=== PATIENT | male | born 2000 | race Caucasian/White ===

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

== ENCOUNTER 2019-01-21 19:34 | Inpatient (IN) | payer MEDICAID, OTHER ==
[~2019-01-21] VITALS: Ht 175.3 cm; Wt 85.3 kg
[~2019-01-21 19:34] MED LIST: ESCI20TA36 PO; ZIPR40CA2 PO
[2019-01-21 20:13] LABS: BASOPHILS % (AUTO) 0.5 % (0.0-2.0); EOSINOPHILS % (AUTO) 1.6 % (1.0-6.0); HEMATOCRIT 43.4 % (41-53); HEMOGLOBIN 14.7 g/dL (13.5-17.5); LYMPHOCYTES # (AUTO) 2.7 K/uL (1.0-4.8); LYMPHOCYTES % (AUTO) 21.9 % (22.0-44.0); MEAN CORPUSCULAR HGB CONC 33.9 G/dL (31.0-37.0); MEAN CORPUSCULAR VOLUME 86 fL (80-100); MONOCYTES # (AUTO) 0.7 K/uL (0.1-1.0); MONOCYTES % (AUTO) 5.9 % (2.0-9.0); NEUTROPHILS # (AUTO) 8.7 K/uL (1.8-7.7); NEUTROPHILS % (AUTO) 70.1 % (40.0-70.0); PLATELET COUNT (AUTO) 248 K/uL (150-450); RED BLOOD CELL COUNT(AUTO) 5.06 MIL/uL (4.50-5.90); RED CELL DISTRIBUTION WIDTH 13.4 % (11.5-14.5)
[2019-01-21] MEDS ORDERED: HALOPERIDOL 5 MG TABLET PO PRN (20:15)
[2019-01-21] MEDS ORDERED: LORazepam 1 MG TABLET PO PRN (20:15)
[2019-01-21] MEDS ORDERED: ZOLPIDEM TARTRATE 10 MG TABLET PO PRN (20:15)
[2019-01-21 20:25] LABS: ANION GAP 8 mmol/L (8-16); CALCIUM, TOTAL 8.9 mg/dL (8.8-10.5); CARBON DIOXIDE 24 mmol/L (22-29); CHLORIDE 105 mmol/L (98-107); CREATININE 0.95 mg/dL (0.60-1.30); GLOMERULAR FILTR. RATE CALC > 60 mL/min (>60); GLUCOSE,RANDOM 108 mg/dL (70-110); SODIUM SERUM 137 mmol/L (136-145); UREA NITROGEN, BLOOD 16 mg/dL (7-18)
[2019-01-21 20:32] LABS: ALANINE AMINOTRANSFERASE 45 U/L (12-78); ALBUMIN 4.1 g/dL (3.4-5.0); ALKALINE PHOSPHATASE 75 U/L (46-116); ASPARTATE AMINOTRANSFERASE 19 U/L (15-37); BILIRUBIN,TOTAL 0.2 mg/dL (0.1-1.0); TOTAL PROTEIN, SERUM 7.7 g/dL (6.4-8.2)
[2019-01-21] MEDS ORDERED: ZIPR40CA2 PO ×2 (21:00)
[2019-01-21] MEDS ORDERED: ESCI20TA PO (21:00)
[2019-01-21] MEDS ORDERED: TOPI25 PO ×2 (21:00)
[2019-01-21] MEDS ORDERED: IBUPROFEN 800 MG TABLET PO ONE (21:15)
[2019-01-21 21:57] LABS: AMPHET/METH SCREEN,URINE NEGATIVE (NEGATIVE); BARBITURATE SCREEN, URINE NEGATIVE (NEGATIVE); BENZODIAZEPINES SCREEN,URINE NEGATIVE (NEGATIVE); CANNABINOID SCREEN,URINE NEGATIVE (NEGATIVE); COCAINE SCREEN,URINE NEGATIVE (NEGATIVE); METHADONE SCREEN, URINE NEGATIVE (NEGATIVE); OPIATE SCREEN,URINE NEGATIVE (NEGATIVE)
[2019-01-21 21:58] LABS: PHENCYCLIDINE SCREEN,URINE NEGATIVE (NEGATIVE)
[2019-01-22 00:28] VITALS: BP 158/92
[2019-01-22 07:50] LABS: BILIRUBIN,URINE NEGATIVE (NEGATIVE); GLUCOSE, URINE (UA) NEGATIVE (NEGATIVE); KETONES,URINE NEGATIVE (NEGATIVE); LEUKOCYTE ESTERASE ,URINE NEGATIVE (NEGATIVE); NITRATE,URINE NEGATIVE (NEGATIVE); OCCULT BLOOD,URINE NEGATIVE (NEGATIVE); PH,URINE 6.5 (5.0-8.0); PROTEIN,URINE TRACE (NEGATIVE); UROBILINOGEN,URINE 0.2 mg/dL (<=1.0)
[2019-01-22 08:09] LABS: APPEARANCE,URINE CLEAR (CLEAR)
[2019-01-22 08:39] VITALS: BP 144/78
[2019-01-22] MEDS ORDERED: ZIPRASIDONE HCL 40 MG CAPSULE PO SCH (10:45)
[2019-01-22] MEDS: TOPIRAMATE 25 MG TABLET PO SCH ×2 (11:29→16:31)
[2019-01-22] MEDS ORDERED: MAG HYDROX/AL HYDROX/SIMETH ES 30 ML SUSPENSION UDCUP PO PRN (11:30)
[2019-01-22] MEDS ORDERED: MAGNESIUM HYDROXIDE SUSPENSION 30 ML UDCUP PO PRN (11:30)
[2019-01-22] MEDS ORDERED: BENZOCAINE/MENTHOL LOZENGE MM PRN (11:30)
[2019-01-22] MEDS ORDERED: BACITRACIN 28.4 GM OINTMENT TP PRN (11:30)
[2019-01-22] MEDS ORDERED: LOPERAMIDE HCL 2 MG CAPSULE PO PRN (11:30)
[2019-01-22] MEDS ORDERED: ACETAMINOPHEN 325 MG TABLET PO PRN (11:30)
[2019-01-22] MEDS ORDERED: ALBUTEROL SULFATE HFA 90 MCG/PUFF 8 GM INHALER IH PRN (11:30)
[2019-01-22] MEDS ORDERED: ONDANSETRON HCL 4 MG TABLET PO PRN (11:30)
[2019-01-22] MEDS ORDERED: IBUPROFEN 600 MG TABLET PO PRN (11:30)
[2019-01-22] MEDS ORDERED: PETROLATUM,WHITE 71 GM JELLY TP PRN (11:30)
[2019-01-22] MEDS ORDERED: CloNIDine HCL 0.1 MG TABLET PO PRN (11:30)
[2019-01-22] MEDS: ESCITALOPRAM OXALATE 20 MG TABLET PO SCH (11:31)
[2019-01-22 16:25] VITALS: BP 138/77
[2019-01-22] MEDS: ZIPRASIDONE HCL 60 MG CAPSULE PO SCH (16:25)
[2019-01-23 06:56] LABS: BASOPHILS % (AUTO) 0.5 % (0.0-2.0); EOSINOPHILS % (AUTO) 1.5 % (1.0-6.0); HEMATOCRIT 44.4 % (41-53); HEMOGLOBIN 15.3 g/dL (13.5-17.5); LYMPHOCYTES # (AUTO) 2.6 K/uL (1.0-4.8); LYMPHOCYTES % (AUTO) 26.6 % (22.0-44.0); MEAN CORPUSCULAR HEMOGLOBIN 29.6 pg (26.0-34.0); MEAN CORPUSCULAR HGB CONC 34.6 G/dL (31.0-37.0); MEAN CORPUSCULAR VOLUME 86 fL (80-100); MONOCYTES % (AUTO) 10.6 % (2.0-9.0); NEUTROPHILS # (AUTO) 5.9 K/uL (1.8-7.7); NEUTROPHILS % (AUTO) 60.8 % (40.0-70.0); PLATELET COUNT (AUTO) 231 K/uL (150-450); RED BLOOD CELL COUNT(AUTO) 5.18 MIL/uL (4.50-5.90); RED CELL DISTRIBUTION WIDTH 13.5 % (11.5-14.5)
[2019-01-23 08:24] VITALS: BP 122/79
[2019-01-23] MEDS: ZIPRASIDONE HCL 60 MG CAPSULE PO SCH ×2 (08:59→16:35)
[2019-01-23] MEDS: TOPIRAMATE 25 MG TABLET PO SCH ×2 (08:59→16:35)
[2019-01-23] MEDS: ESCITALOPRAM OXALATE 20 MG TABLET PO SCH (08:59)
[2019-01-23 21:25] VITALS: BP 127/82
[2019-01-24] MEDS: ZIPRASIDONE HCL 60 MG CAPSULE PO SCH ×2 (07:18→16:32)
[2019-01-24 08:00] VITALS: BP 125/80
[2019-01-24] MEDS: ESCITALOPRAM OXALATE 20 MG TABLET PO SCH (08:53)
[2019-01-24] MEDS: TOPIRAMATE 25 MG TABLET PO SCH ×2 (08:54→16:32)
[2019-01-24 23:02] VITALS: BP 121/87
[2019-01-25] MEDS: ZIPRASIDONE HCL 60 MG CAPSULE PO SCH ×2 (07:01→17:03)
[2019-01-25] MEDS: ESCITALOPRAM OXALATE 20 MG TABLET PO SCH (08:13)
[2019-01-25] MEDS: TOPIRAMATE 25 MG TABLET PO SCH ×2 (08:13→17:03)
[2019-01-25 08:53] VITALS: BP 106/68
[2019-01-25 16:00] VITALS: BP 133/77
[2019-01-26] MEDS: ZIPRASIDONE HCL 60 MG CAPSULE PO SCH ×2 (07:03→17:55)
[2019-01-26 08:45] VITALS: BP 117/63
[2019-01-26] MEDS: ESCITALOPRAM OXALATE 20 MG TABLET PO SCH (09:29)
[2019-01-26] MEDS: TOPIRAMATE 25 MG TABLET PO SCH ×2 (09:30→16:19)
[2019-01-26 20:04] VITALS: BP 126/78
[2019-01-27] MEDS: ZIPRASIDONE HCL 60 MG CAPSULE PO SCH (06:55)
[2019-01-27] MEDS: ESCITALOPRAM OXALATE 20 MG TABLET PO SCH (08:32)
[2019-01-27] MEDS: TOPIRAMATE 25 MG TABLET PO SCH (08:32)
[2019-01-27 09:28] VITALS: BP 126/85
[2019-01-27] MEDS ORDERED: ZIPR60CA2 PO (13:40)
== END 2019-01-27 14:30 | disposition home or self-care (01) | DRG 753 ==
LOC: EMS 19:35 → 3EC 21:30
PROVIDERS: ADMIT Psychiatry & Neurology Psychiatry; ATTEND Psychiatry & Neurology Psychiatry
DX: F31.4 Bipolar disorder, current episode depressed, severe, without psychotic features (principal); D72.829 Elevated white blood cell count, unspecified; F41.9 Anxiety disorder, unspecified; F84.0 Autistic disorder; G47.00 Insomnia, unspecified; S05.12XA Contusion of eyeball and orbital tissues, left eye, initial encounter; E78.5 Hyperlipidemia, unspecified; Z56.0 Unemployment, unspecified; X58.XXXA Exposure to other specified factors, initial encounter; Y93.89 Activity, other specified; Y92.89 Other specified places as the place of occurrence of the external cause; Y99.8 Other external cause status
CPT/HCPCS: G0480

== ENCOUNTER 2019-07-10 19:11 | Emergency (ER) | payer MEDICAID, OTHER ==
[~2019-07-10] VITALS: Ht 175.3 cm; Wt 77.3 kg
[~2019-07-10 19:11] MED LIST changes: +ESCI20TA PO; -ESCI20TA36 PO; +TOPI25 PO; -ZIPR40CA2 PO; +ZIPR60CA2 PO
[2019-07-10 20:24] LABS: ANION GAP 11 mmol/L (8-16); CALCIUM, TOTAL 9.6 mg/dL (8.8-10.5); CARBON DIOXIDE 23 mmol/L (22-29); CHLORIDE 105 mmol/L (98-107); CREATININE 1.29 mg/dL (0.60-1.30); GLOMERULAR FILTR. RATE CALC > 60 mL/min (>60); GLUCOSE,RANDOM 134 mg/dL (70-110); POTASSIUM 3.3 mmol/L (3.5-5.1); SODIUM SERUM 139 mmol/L (136-145); UREA NITROGEN, BLOOD 15 mg/dL (7-18)
[2019-07-10 20:26] LABS: BASOPHILS % (AUTO) 0.4 % (0.0-2.0); EOSINOPHILS % (AUTO) 0.8 % (1.0-6.0); HEMATOCRIT 45.6 % (41-53); HEMOGLOBIN 15.2 g/dL (13.5-17.5); LYMPHOCYTES # (AUTO) 2.6 K/uL (1.0-4.8); LYMPHOCYTES % (AUTO) 23.6 % (22.0-44.0); MEAN CORPUSCULAR HEMOGLOBIN 29.3 pg (26.0-34.0); MEAN CORPUSCULAR HGB CONC 33.2 G/dL (31.0-37.0); MEAN CORPUSCULAR VOLUME 88 fL (80-100); MONOCYTES # (AUTO) 0.9 K/uL (0.1-1.0); MONOCYTES % (AUTO) 7.9 % (2.0-9.0); NEUTROPHILS # (AUTO) 7.5 K/uL (1.8-7.7); NEUTROPHILS % (AUTO) 67.3 % (40.0-70.0); PLATELET COUNT (AUTO) 245 K/uL (150-450); RED BLOOD CELL COUNT(AUTO) 5.18 MIL/uL (4.50-5.90); RED CELL DISTRIBUTION WIDTH 13.8 % (11.5-14.5)
[2019-07-10 20:30] LABS: ALANINE AMINOTRANSFERASE 42 U/L (12-78); ALBUMIN 4.5 g/dL (3.4-5.0); ALKALINE PHOSPHATASE 71 U/L (46-116); ASPARTATE AMINOTRANSFERASE 19 U/L (15-37); BILIRUBIN,TOTAL 0.4 mg/dL (0.1-1.0); TOTAL PROTEIN, SERUM 7.9 g/dL (6.4-8.2)
[2019-07-10 21:02] VITALS: BP 122/70
[2019-07-10] MEDS ORDERED: DiphenhydrAMINE HCL 25 MG CAPSULE PO ONE (21:15)
== END 2019-07-10 21:10 | disposition home or self-care (01) ==
LOC: EMS 19:12
DX: F84.0 Autistic disorder (principal); R45.4 Irritability and anger; F31.9 Bipolar disorder, unspecified; Z79.899 Other long term (current) drug therapy
CPT/HCPCS: 36415; 70450; 80053; 82948; 85025; 93005; 99285; G0480

== ENCOUNTER 2019-07-18 11:50 | Emergency (ER) | payer OTHER ==
[~2019-07-18] VITALS: Ht 175.3 cm; Wt 77.3 kg
[2019-07-18 14:26] VITALS: BP 135/71
== END 2019-07-18 14:29 | disposition home or self-care (01) ==
LOC: EMS 11:51
DX: S43.101A Unspecified dislocation of right acromioclavicular joint, initial encounter (principal); F31.9 Bipolar disorder, unspecified; W01.0XXA Fall on same level from slipping, tripping and stumbling without subsequent striking against object, initial encounter; Y93.89 Activity, other specified; Y92.89 Other specified places as the place of occurrence of the external cause; Y99.8 Other external cause status
CPT/HCPCS: 23650

== ENCOUNTER 2019-08-29 19:31 | Inpatient (IN) | payer MEDICAID, OTHER ==
[~2019-08-29] VITALS: Ht 175.3 cm; Wt 87.3 kg
[2019-08-29] MEDS ORDERED: LORazepam 2 MG TABLET PO PRN (20:00)
[2019-08-29] MEDS ORDERED: HALOPERIDOL 5 MG TABLET PO PRN (20:00)
[2019-08-29] MEDS ORDERED: ZOLPIDEM TARTRATE 10 MG TABLET PO PRN (20:00)
[2019-08-29] MEDS ORDERED: INFLUENZA VIRUS VACCINE QVS 2019-20 (3YR+)/PF 60 MCG/0.5 ML SYRINGE IM ONE (20:30)
[2019-08-29 22:02] VITALS: BP 116/53
[2019-08-30 04:00] VITALS: BP 118/79
[2019-08-30 07:59] LABS: BASOPHILS % (AUTO) 0.3 % (0.0-2.0); EOSINOPHILS % (AUTO) 0.4 % (1.0-6.0); HEMOGLOBIN 15.4 g/dL (13.5-17.5); LYMPHOCYTES # (AUTO) 1.8 K/uL (1.0-4.8); LYMPHOCYTES % (AUTO) 20.6 % (22.0-44.0); MEAN CORPUSCULAR HEMOGLOBIN 29.2 pg (26.0-34.0); MEAN CORPUSCULAR HGB CONC 33.5 G/dL (31.0-37.0); MEAN CORPUSCULAR VOLUME 87 fL (80-100); MONOCYTES # (AUTO) 0.6 K/uL (0.1-1.0); MONOCYTES % (AUTO) 6.7 % (2.0-9.0); NEUTROPHILS # (AUTO) 6.4 K/uL (1.8-7.7); PLATELET COUNT (AUTO) 260 K/uL (150-450); RED BLOOD CELL COUNT(AUTO) 5.28 MIL/uL (4.50-5.90); RED CELL DISTRIBUTION WIDTH 13.5 % (11.5-14.5)
[2019-08-30 08:19] LABS: HEMOGLOBIN A1C 5.9 % (4.5-6.2)
[2019-08-30 08:24] VITALS: BP 120/81
[2019-08-30 08:37] LABS: ALANINE AMINOTRANSFERASE 60 U/L (12-78); ALKALINE PHOSPHATASE 74 U/L (46-116); ANION GAP 8 mmol/L (8-16); ASPARTATE AMINOTRANSFERASE 21 U/L (15-37); BILIRUBIN,TOTAL 0.4 mg/dL (0.1-1.0); CALCIUM, TOTAL 9.3 mg/dL (8.8-10.5); CARBON DIOXIDE 27 mmol/L (22-29); CHLORIDE 106 mmol/L (98-107); CHOL/HDL RATIO 5.2 (4.2-7.3); CHOLESTEROL 215 mg/dL (131-200); CREATININE 0.73 mg/dL (0.60-1.30); FREE T4 (FREE THYROXINE) 0.82 ng/dL (0.76-1.46); GLOMERULAR FILTR. RATE CALC > 60 mL/min (>60); GLUCOSE,RANDOM 93 mg/dL (70-110); HDL CHOLESTEROL 41 mg/dL (40-60); LDL CHOL (CALC.) 154 mg/dL (0-130); POTASSIUM 3.8 mmol/L (3.5-5.1); SODIUM SERUM 141 mmol/L (136-145); THYROID STIMULATING HORMONE 2.19 uIU/mL (0.36-3.74); TOTAL PROTEIN, SERUM 7.9 g/dL (6.4-8.2); TRIGLYCERIDES 101 mg/dL (15-150); UREA NITROGEN, BLOOD 10 mg/dL (7-18)
[2019-08-30] MEDS: ESCITALOPRAM OXALATE 20 MG TABLET PO SCH (14:33)
[2019-08-30 16:00] VITALS: BP 129/82
[2019-08-30] MEDS: TOPIRAMATE 25 MG TABLET PO SCH (16:58)
[2019-08-30] MEDS: ZIPRASIDONE HCL 60 MG CAPSULE PO SCH (16:58)
[2019-08-31 00:29] VITALS: BP 138/72
[2019-08-31] MEDS: ZIPRASIDONE HCL 60 MG CAPSULE PO SCH ×2 (07:02→16:12)
[2019-08-31 08:18] VITALS: BP 117/79
[2019-08-31] MEDS: TOPIRAMATE 25 MG TABLET PO SCH ×2 (08:38→16:12)
[2019-08-31] MEDS: ESCITALOPRAM OXALATE 20 MG TABLET PO SCH (08:38)
[2019-08-31 16:09] VITALS: BP 107/65
[2019-09-01 00:44] VITALS: BP 114/80
[2019-09-01] MEDS: ZIPRASIDONE HCL 60 MG CAPSULE PO SCH ×2 (06:31→16:55)
[2019-09-01 08:11] VITALS: BP 108/66
[2019-09-01] MEDS: TOPIRAMATE 25 MG TABLET PO SCH ×2 (08:37→16:55)
[2019-09-01] MEDS: ESCITALOPRAM OXALATE 20 MG TABLET PO SCH (08:37)
[2019-09-01 16:35] VITALS: BP 118/81
[2019-09-02 06:26] VITALS: BP 115/71
[2019-09-02] MEDS: ZIPRASIDONE HCL 60 MG CAPSULE PO SCH ×2 (06:43→16:41)
[2019-09-02] MEDS: TOPIRAMATE 25 MG TABLET PO SCH ×2 (08:19→16:42)
[2019-09-02] MEDS: ESCITALOPRAM OXALATE 20 MG TABLET PO SCH (08:19)
[2019-09-02 08:27] VITALS: BP 118/62
[2019-09-02 16:11] VITALS: BP 117/63
[2019-09-02] MEDS ORDERED: PETROLATUM,WHITE 28 GM JELLY TP PRN (16:30)
[2019-09-02] MEDS ORDERED: IBUPROFEN 600 MG TABLET PO PRN (16:30)
[2019-09-02] MEDS ORDERED: ONDANSETRON HCL 4 MG TABLET PO PRN (16:30)
[2019-09-02] MEDS ORDERED: OMEPRAZOLE 20 MG CAPSULE PO PRN (16:30)
[2019-09-02] MEDS ORDERED: BACITRACIN 28.4 GM OINTMENT TP PRN (16:30)
[2019-09-02] MEDS ORDERED: ACETAMINOPHEN 325 MG TABLET PO PRN (16:30)
[2019-09-02] MEDS ORDERED: MAG HYDROX/AL HYDROX/SIMETH ES 30 ML SUSPENSION UDCUP PO PRN (16:30)
[2019-09-02] MEDS ORDERED: BENZOCAINE/MENTHOL LOZENGE MM PRN (16:30)
[2019-09-02] MEDS ORDERED: MAGNESIUM HYDROXIDE SUSPENSION 30 ML UDCUP PO PRN (16:30)
[2019-09-02] MEDS ORDERED: DOCUSATE SODIUM 100 MG CAPSULE PO PRN (16:30)
[2019-09-02] MEDS ORDERED: ALBUTEROL SULFATE HFA 90 MCG/PUFF 8 GM INHALER IH PRN (16:30)
[2019-09-02] MEDS ORDERED: CloNIDine HCL 0.1 MG TABLET PO PRN (16:30)
[2019-09-02] MEDS ORDERED: LOPERAMIDE HCL 2 MG CAPSULE PO PRN (16:30)
[2019-09-03 05:57] VITALS: BP 103/76
[2019-09-03] MEDS: ZIPRASIDONE HCL 60 MG CAPSULE PO SCH ×2 (06:49→17:00)
[2019-09-03] MEDS: OMEGA-3/DHA/EPA/FISH OIL 1,000 MG CAPSULE PO SCH (08:04)
[2019-09-03] MEDS: TOPIRAMATE 25 MG TABLET PO SCH ×2 (08:04→17:00)
[2019-09-03] MEDS: ESCITALOPRAM OXALATE 20 MG TABLET PO SCH (08:04)
[2019-09-03 08:48] VITALS: BP 113/65
[2019-09-03 16:21] VITALS: BP 112/62
[2019-09-04 00:25] VITALS: BP 118/61
[2019-09-04] MEDS: ZIPRASIDONE HCL 60 MG CAPSULE PO SCH (07:00)
[2019-09-04 08:14] VITALS: BP 117/69
[2019-09-04] MEDS: OMEGA-3/DHA/EPA/FISH OIL 1,000 MG CAPSULE PO SCH (08:27)
[2019-09-04] MEDS: TOPIRAMATE 25 MG TABLET PO SCH (08:27)
[2019-09-04] MEDS: ESCITALOPRAM OXALATE 20 MG TABLET PO SCH (08:27)
[2019-09-04] MEDS ORDERED: OMEG-135 PO (13:19)
== END 2019-09-04 14:15 | disposition home or self-care (01) | DRG 750 ==
LOC: B2S 19:55
DX: F20.0 Paranoid schizophrenia (principal); D72.829 Elevated white blood cell count, unspecified; F31.9 Bipolar disorder, unspecified; F84.0 Autistic disorder; S05.12XA Contusion of eyeball and orbital tissues, left eye, initial encounter; X58.XXXA Exposure to other specified factors, initial encounter; G47.00 Insomnia, unspecified; Z79.899 Other long term (current) drug therapy; Y93.89 Activity, other specified; Y92.89 Other specified places as the place of occurrence of the external cause; Y99.8 Other external cause status
CPT/HCPCS: 83036; 84439; 84443

== ENCOUNTER 2025-06-01 22:13 | Inpatient (IN) | payer MEDICAID, OTHER ==
[~2025-06-01] VITALS: Ht 175.3 cm; Wt 89.0 kg
[~2025-06-01 22:13] MED LIST changes: -ESCI20TA PO; +ESCI20TA87 PO; +OMEG-135 PO; +TOPI-257 PO; -TOPI25 PO; -ZIPR60CA2 PO; +ZIPR60CA29 PO
[2025-06-01 23:00] LABS: COVID AG,FIA SOURCE NASAL SWAB
[2025-06-01 23:04] LABS: PLATELET COUNT (AUTO) 224 K/uL (150-450); RED BLOOD CELL COUNT(AUTO) 4.75 MIL/uL (4.50-5.90); RED CELL DISTRIBUTION WIDTH 13.0 % (11.5-14.5); WHITE BLOOD COUNT (AUTO) 9.9 K/uL (4.5-11.0)
[2025-06-01 23:10] LABS: CALCIUM, TOTAL 8.5 mg/dL (8.8-10.5); CREATININE 0.70 mg/dL (0.60-1.30); GLOMERULAR FILTR. RATE CALC > 60 mL/min (>60); GLUCOSE,RANDOM 103 mg/dL (70-110); SODIUM SERUM 141 mmol/L (136-145); UREA NITROGEN, BLOOD 15 mg/dL (7-18)
[2025-06-01 23:23] LABS: SARS-COV2 (COVID) ANTIGEN,FIA Negative (Negative)
[2025-06-02 04:30] VITALS: O2SAT 99
[2025-06-02] MEDS ORDERED: DOCUSATE SODIUM 100 MG CAPSULE PO PRN (05:30)
[2025-06-02] MEDS ORDERED: LOPERAMIDE HCL 2 MG CAPSULE PO PRN (05:30)
[2025-06-02] MEDS ORDERED: MAG HYDROX/ALUMINUM HYD/SIMETH ES 30 ML SUSPENSION UDCUP PO PRN (05:30)
[2025-06-02] MEDS ORDERED: IBUPROFEN 600 MG TABLET PO PRN (05:30)
[2025-06-02] MEDS ORDERED: PETROLATUM,WHITE 28 GM JELLY TP PRN (05:30)
[2025-06-02] MEDS ORDERED: BENZOCAINE/MENTHOL [CEPACOL] LOZENGE PO PRN (05:30)
[2025-06-02] MEDS ORDERED: ALBUTEROL SULFATE HFA 90 MCG/PUFF 8 GM INHALER IH PRN (05:30)
[2025-06-02] MEDS ORDERED: ONDANSETRON 4 MG TABLET PO PRN (05:30)
[2025-06-02] MEDS ORDERED: MAGNESIUM HYDROXIDE SUSPENSION 30 ML UDCUP PO PRN (05:30)
[2025-06-02] MEDS ORDERED: BACITRACIN 28 GM OINTMENT TP PRN (05:30)
[2025-06-02] MEDS ORDERED: OMEPRAZOLE 20 MG CAPSULE PO PRN (05:30)
[2025-06-02] MEDS ORDERED: ACETAMINOPHEN 325 MG TABLET PO PRN (05:30)
[2025-06-02 06:19] VITALS: BP 119/98; PULSE 105; RESP 18; TEMP 97.9; O2SAT 100
[2025-06-02 08:31] VITALS: BP 132/80; PULSE 85; RESP 18; TEMP 98.1; O2SAT 99
[2025-06-02] MEDS: OMEGA-3/DHA/EPA/FISH OIL 1,000 MG CAPSULE PO SCH (09:22)
[2025-06-02 15:00] VITALS: BP 119/64; PULSE 84; RESP 17; TEMP 98.6; O2SAT 98
[2025-06-02 20:42] VITALS: BP 122/69; PULSE 100; RESP 16; TEMP 98.4; O2SAT 99
[2025-06-03 09:02] LABS: PLATELET COUNT (AUTO) 254 K/uL (150-450); RED BLOOD CELL COUNT(AUTO) 5.17 MIL/uL (4.50-5.90); RED CELL DISTRIBUTION WIDTH 12.8 % (11.5-14.5); WHITE BLOOD COUNT (AUTO) 7.6 K/uL (4.5-11.0)
[2025-06-03 09:13] VITALS: BP 119/63; PULSE 97; RESP 18; TEMP 97.4; O2SAT 98
[2025-06-03 09:30] LABS: ASPARTATE AMINOTRANSFERASE 13 U/L (15-37); CALCIUM, TOTAL 9.0 mg/dL (8.8-10.5); CHOL/HDL RATIO 4.8 (4.2-7.3); CREATININE 0.63 mg/dL (0.60-1.30); GLOMERULAR FILTR. RATE CALC > 60 mL/min (>60); GLUCOSE,RANDOM 83 mg/dL (70-110); LDL CHOL (CALC.) 145 mg/dL (0-130); SODIUM SERUM 144 mmol/L (136-145); TOTAL PROTEIN, SERUM 7.7 g/dL (6.4-8.2); UREA NITROGEN, BLOOD 11 mg/dL (7-18)
[2025-06-03 20:29] VITALS: BP 127/72; PULSE 85; RESP 18; TEMP 98.5; O2SAT 98
[2025-06-03] MEDS: ZOLPIDEM TARTRATE 10 MG TABLET PO PRN (21:43)
[2025-06-04 09:11] VITALS: BP 130/70; RESP 16; TEMP 98.6; O2SAT 99
[2025-06-04] MEDS: LITHIUM CARBONATE 300 MG CAPSULE PO SCH (18:02)
[2025-06-04] MEDS: DIVALPROEX SODIUM 500 MG DR TABLET PO SCH (18:02)
[2025-06-04 20:22] VITALS: BP 114/81; PULSE 101; RESP 18; TEMP 97.7; O2SAT 99
[2025-06-05 09:02] VITALS: BP 134/61; PULSE 107; RESP 16; TEMP 98.1; O2SAT 98
[2025-06-05 20:29] VITALS: BP 142/86; PULSE 110; RESP 17; TEMP 98.4; O2SAT 99
[2025-06-06] MEDS ORDERED: OMEGA-3/DHA/EPA/FISH OIL 1,000 MG CAPSULE PO SCH (09:00)
[2025-06-06 09:13] VITALS: BP 125/72; PULSE 100; RESP 18; TEMP 96.8; O2SAT 96
[2025-06-06 20:27] VITALS: BP 138/90; PULSE 101; RESP 18; TEMP 98.2; O2SAT 98
[2025-06-07 08:35] VITALS: BP 132/63; PULSE 109; RESP 17; TEMP 97.1; O2SAT 98
[2025-06-07 20:00] VITALS: BP 129/73; PULSE 100; RESP 16; TEMP 98.4; O2SAT 100
[2025-06-08 08:57] VITALS: BP 130/75; PULSE 100; RESP 18; TEMP 98; O2SAT 98
[2025-06-08 09:18] LABS: VALPROIC ACID 56 mcg/mL (50-100)
[2025-06-08 20:26] VITALS: BP 124/77; PULSE 89; RESP 18; TEMP 98.1; O2SAT 98
[2025-06-09] VITALS (10 sets, daily range): BP systolic 108–131; BP diastolic 66–89; PULSE 80–102; RESP 16–18; TEMP 97.7–98.4; O2SAT 97–99
[2025-06-09 08:41] LABS: APPEARANCE,URINE CLEAR (CLEAR); GLUCOSE, URINE (UA) NEGATIVE (NEGATIVE); LEUKOCYTE ESTERASE ,URINE NEGATIVE (NEGATIVE); NITRATE,URINE NEGATIVE (NEGATIVE); OCCULT BLOOD,URINE NEGATIVE (NEGATIVE); PH,URINE DRUG SCREEN 6.5 (5.0-8.0); SPECIFIC GRAVITIY, URINE 1.014 (1.003-1.030)
[2025-06-09 08:45] LABS: ALCOHOL, URINE DRUG SCREEN NEGATIVE (NEGATIVE); AMPHET/METH SCREEN,URINE NEGATIVE (NEGATIVE); BARBITURATE SCREEN, URINE NEGATIVE (NEGATIVE); CANNABINOID SCREEN,URINE NEGATIVE (NEGATIVE); COCAINE SCREEN,URINE NEGATIVE (NEGATIVE); METHADONE SCREEN, URINE NEGATIVE (NEGATIVE)
[2025-06-09] MEDS: TOPIRAMATE 100 MG TABLET PO SCH (18:45)
[2025-06-09] MEDS: PRAZOSIN HCL 2 MG CAPSULE PO SCH (21:39)
[2025-06-10 09:10] VITALS: BP 109/64; PULSE 97; RESP 18; TEMP 98.4; O2SAT 96
[2025-06-10 20:21] VITALS: BP 114/68; PULSE 100; RESP 17; TEMP 98.1; O2SAT 98
[2025-06-10 20:40] VITALS: BP 114/68; PULSE 100; RESP 17; TEMP 98.2; O2SAT 98
[2025-06-11 08:41] VITALS: BP 105/60; PULSE 100; RESP 16; TEMP 98.8; O2SAT 98
[2025-06-11 14:53] VITALS: BP 105/60; PULSE 100; RESP 16; TEMP 98.8; O2SAT 98
[2025-06-11 20:47] VITALS: BP 111/66; PULSE 85; RESP 17; TEMP 98.2; O2SAT 98
[2025-06-12 08:36] VITALS: BP 116/70; PULSE 100; RESP 18; TEMP 97.9; O2SAT 99
[2025-06-12] MEDS: HYDROCORTISONE 1% 30 GM OINTMENT TP SCH (13:00)
[2025-06-12] MEDS ORDERED: RISP3TAB35 PO (18:50)
[2025-06-12] MEDS ORDERED: LITH300C3 PO (18:51)
[2025-06-12] MEDS ORDERED: DIVA-112 PO (18:51)
[2025-06-12 20:23] VITALS: BP 115/77; PULSE 80; RESP 18; TEMP 97.5; O2SAT 96
== END 2025-06-12 19:22 | disposition home or self-care (01) | DRG 750 ==
LOC: EMS 22:13 → B2S 06-02 04:15
PROVIDERS: ADMIT Psychiatry & Neurology Psychiatry; ATTEND Psychiatry & Neurology Psychiatry
DX: F25.9 Schizoaffective disorder, unspecified (principal); E78.5 Hyperlipidemia, unspecified; F41.9 Anxiety disorder, unspecified; F84.0 Autistic disorder; G47.00 Insomnia, unspecified; Z20.822 Contact with and (suspected) exposure to COVID-19; Z79.899 Other long term (current) drug therapy
CPT/HCPCS: 80048; 80053; 80061; 80164; 80178; 80307; 81003; 83036; 84436; 84443; 85025; G0480

== ENCOUNTER 2025-07-15 20:51 | Inpatient (IN) | payer MEDICAID, OTHER ==
[~2025-07-15] VITALS: Ht 175.3 cm; Wt 71.7 kg
[~2025-07-15 20:51] MED LIST changes: +DIVA-112 PO; -ESCI20TA87 PO; +LITH300C3 PO; -OMEG-135 PO; +RISP3TAB35 PO; -TOPI-257 PO; -ZIPR60CA29 PO
[2025-07-15 23:17] LABS: WHITE BLOOD COUNT (AUTO) 15.3 K/uL (4.5-11.0)
[2025-07-15 23:25] LABS: CALCIUM, TOTAL 8.5 mg/dL (8.8-10.5); CREATININE 0.82 mg/dL (0.60-1.30); GLOMERULAR FILTR. RATE CALC > 60 mL/min (>60); GLUCOSE,RANDOM 110 mg/dL (70-110); PLATELET COUNT (AUTO) 250 K/uL (150-450); RED BLOOD CELL COUNT(AUTO) 5.03 MIL/uL (4.50-5.90); RED CELL DISTRIBUTION WIDTH 12.9 % (11.5-14.5); SODIUM SERUM 139 mmol/L (136-145); UREA NITROGEN, BLOOD 12 mg/dL (7-18)
[2025-07-16] MEDS ORDERED: ARIP2TAB27 PO (00:05)
[2025-07-16] MEDS ORDERED: TOPI-258 PO (00:05)
[2025-07-16] MEDS ORDERED: GABA-1181 PO (00:05)
[2025-07-16 01:10] LABS: COVID AG,FIA SOURCE NASAL SWAB
[2025-07-16 01:29] LABS: APPEARANCE,URINE CLEAR (CLEAR); GLUCOSE, URINE (UA) NEGATIVE (NEGATIVE); LEUKOCYTE ESTERASE ,URINE NEGATIVE (NEGATIVE); NITRATE,URINE NEGATIVE (NEGATIVE); OCCULT BLOOD,URINE NEGATIVE (NEGATIVE); PH,URINE DRUG SCREEN 6.5 (5.0-8.0); SPECIFIC GRAVITIY, URINE 1.011 (1.003-1.030)
[2025-07-16 01:34] LABS: SARS-COV2 (COVID) ANTIGEN,FIA Negative (Negative)
[2025-07-16 01:44] LABS: AMPHET/METH SCREEN,URINE NEGATIVE (NEGATIVE); BARBITURATE SCREEN, URINE NEGATIVE (NEGATIVE); CANNABINOID SCREEN,URINE NEGATIVE (NEGATIVE); COCAINE SCREEN,URINE NEGATIVE (NEGATIVE); METHADONE SCREEN, URINE NEGATIVE (NEGATIVE)
[2025-07-16] MEDS ORDERED: ZOLPIDEM TARTRATE 10 MG TABLET PO PRN (01:45)
[2025-07-16 01:52] LABS: ALCOHOL, URINE DRUG SCREEN NEGATIVE (NEGATIVE)
[2025-07-16 03:07] VITALS: BP 115/85; PULSE 77; RESP 19; TEMP 98.3; O2SAT 100
[2025-07-16 03:22] VITALS: BP 115/85; PULSE 77; RESP 19; TEMP 98.3; O2SAT 100
[2025-07-16] MEDS ORDERED: IBUPROFEN 600 MG TABLET PO PRN (05:30)
[2025-07-16] MEDS ORDERED: OMEPRAZOLE 20 MG CAPSULE PO PRN (05:30)
[2025-07-16] MEDS ORDERED: ALBUTEROL SULFATE HFA 90 MCG/PUFF 8 GM INHALER IH PRN (05:30)
[2025-07-16] MEDS ORDERED: BENZOCAINE/MENTHOL [CEPACOL] LOZENGE PO PRN (05:30)
[2025-07-16] MEDS ORDERED: MAGNESIUM HYDROXIDE SUSPENSION 30 ML UDCUP PO PRN (05:30)
[2025-07-16] MEDS ORDERED: DOCUSATE SODIUM 100 MG CAPSULE PO PRN (05:30)
[2025-07-16] MEDS ORDERED: ACETAMINOPHEN 325 MG TABLET PO PRN (05:30)
[2025-07-16] MEDS ORDERED: ONDANSETRON 4 MG TABLET PO PRN (05:30)
[2025-07-16] MEDS ORDERED: MAG HYDROX/ALUMINUM HYD/SIMETH ES 30 ML SUSPENSION UDCUP PO PRN (05:30)
[2025-07-16] MEDS ORDERED: LOPERAMIDE HCL 2 MG CAPSULE PO PRN (05:30)
[2025-07-16] MEDS ORDERED: BACITRACIN 28 GM OINTMENT TP PRN (05:30)
[2025-07-16] MEDS ORDERED: PETROLATUM,WHITE 28 GM JELLY TP PRN (05:30)
[2025-07-16] MEDS: TOPIRAMATE 100 MG TABLET PO SCH (08:38)
[2025-07-16 09:00] VITALS: BP 121/72; PULSE 93; RESP 17; TEMP 98.4
[2025-07-16] MEDS: DIVALPROEX SODIUM 500 MG DR TABLET PO SCH (16:49)
[2025-07-16] MEDS: LITHIUM CARBONATE 300 MG CAPSULE PO SCH (16:49)
[2025-07-16] MEDS: GABAPENTIN 300 MG CAPSULE PO SCH (20:40)
[2025-07-16 21:18] VITALS: BP 112/67; PULSE 100; RESP 18; TEMP 98.3; O2SAT 100
[2025-07-17 09:00] VITALS: BP 115/73; PULSE 97; RESP 18; TEMP 97.8; O2SAT 97
[2025-07-17 21:38] VITALS: BP 108/65; PULSE 98; RESP 20; TEMP 98.1; O2SAT 98
[2025-07-18 07:49] LABS: CHOL/HDL RATIO 5.0 (4.2-7.3); LDL CHOL (CALC.) 128.0 mg/dL (0-130); PHOSPHORUS 4.1 mg/dL (2.5-4.9)
[2025-07-18 09:34] VITALS: BP 111/62; PULSE 90; RESP 18; TEMP 98; O2SAT 98
[2025-07-18 21:39] VITALS: BP 112/64; PULSE 91; RESP 18; TEMP 97.4; O2SAT 98
[2025-07-19 09:23] VITALS: BP 106/66; PULSE 88; RESP 18; TEMP 97.8; O2SAT 98
[2025-07-19 23:51] VITALS: BP 111/68; PULSE 83; RESP 18; TEMP 97.7; O2SAT 99
[2025-07-20 09:28] VITALS: BP 110/58; PULSE 89; RESP 18; TEMP 98; O2SAT 97
[2025-07-20 23:39] VITALS: BP 108/72; PULSE 96; RESP 18; TEMP 98.1; O2SAT 100
[2025-07-21 09:41] VITALS: BP 107/67; PULSE 88; RESP 17; TEMP 98.3; O2SAT 97
[2025-07-21 22:34] VITALS: BP 110/69; PULSE 83; RESP 17; TEMP 98.4; O2SAT 98
[2025-07-22 09:05] VITALS: BP 112/61; PULSE 62; RESP 16; TEMP 97.9; O2SAT 98
[2025-07-22 20:25] VITALS: BP 115/74; PULSE 90; RESP 18; TEMP 97; O2SAT 97
[2025-07-23 09:56] VITALS: BP 110/63; PULSE 82; RESP 18; TEMP 97.5; O2SAT 98
[2025-07-23 21:08] VITALS: BP 131/71; PULSE 94; RESP 19; TEMP 99; O2SAT 98
[2025-07-24 08:33] LABS: VALPROIC ACID 67.0 mcg/mL (50-100)
[2025-07-24] MEDS ORDERED: RISP3TAB77 PO (12:54)
[2025-07-24] MEDS ORDERED: DIVA500T2 PO (12:54)
== END 2025-07-24 15:30 | disposition home or self-care (01) | DRG 750 ==
LOC: EMS 20:51 → 3EI 07-16 02:01
PROVIDERS: ADMIT Psychiatry & Neurology Psychiatry; ATTEND Psychiatry & Neurology Psychiatry
DX: F20.9 Schizophrenia, unspecified (principal); D72.829 Elevated white blood cell count, unspecified; Z20.822 Contact with and (suspected) exposure to COVID-19; E78.00 Pure hypercholesterolemia, unspecified; F41.9 Anxiety disorder, unspecified; G47.00 Insomnia, unspecified; F84.0 Autistic disorder
CPT/HCPCS: 80048; 80061; 80164; 80178; 80307; 81003; 83036; 83735; 84100; 84443; 85025; 99285; G0480